=== PATIENT | female | born 1975 | race Caucasian/White ===

== ENCOUNTER 2016-10-09 13:43 | Emergency (ER) | payer OTHER ==
[~2016-10-09 13:43] MED LIST: HYDROCODONE BIT1 T11 PO; MOTRIN600 MG PO; MOTRIN800 MG PO; Motrin,Rufen800 MG PO; NAPROSYN500 MG PO; NAPROXEN500 M1 PO; NO DAILY MEDS; PERCOCET 325 MG1 TA2 PO; VICODIN 5/500 505 MG PO; VICODIN 500 MG-1 TAB PO
[2016-10-09 13:50] VITALS: BP 122/90
[2016-10-09] MEDS ORDERED: DOK COLACE100 MG PO (16:01)
[2016-10-09] MEDS ORDERED: PERCOCET 325 MG1 TA2 PO (16:01)
[2016-10-09] MEDS ORDERED: Motrin,Rufen800 MG PO (16:01)
== END 2016-10-09 16:03 | disposition home or self-care (01) ==
LOC: ED 13:43
DX: S22.31XA Fracture of one rib, right side, initial encounter for closed fracture (principal); F17.200 Nicotine dependence, unspecified, uncomplicated; Z88.0 Allergy status to penicillin; Z88.8 Allergy status to other drugs, medicaments and biological substances; W19.XXXA Unspecified fall, initial encounter; Y93.89 Activity, other specified; Y92.9 Unspecified place or not applicable; Y99.9 Unspecified external cause status

== ENCOUNTER 2017-06-23 12:55 | Emergency (ER) | payer OTHER ==
[~2017-06-23] VITALS: Ht 160 cm; Wt 53.1 kg
[~2017-06-23 12:55] MED LIST changes: +DOK COLACE100 MG PO
[2017-06-23 13:05] VITALS: BP 130/71
[2017-06-23] MEDS ORDERED: NAPROSYN500 MG PO (14:09)
[2017-06-23] MEDS ORDERED: NORCO 5-325 TA1 EACH PO (14:59)
== END 2017-06-23 15:10 | disposition home or self-care (01) ==
LOC: ED 12:55
DX: S89.92XA Unspecified injury of left lower leg, initial encounter (principal); M25.462 Effusion, left knee; R03.0 Elevated blood-pressure reading, without diagnosis of hypertension; Z88.0 Allergy status to penicillin; Z88.8 Allergy status to other drugs, medicaments and biological substances; W22.8XXA Striking against or struck by other objects, initial encounter; Y93.89 Activity, other specified; Y92.89 Other specified places as the place of occurrence of the external cause; Y99.8 Other external cause status

== ENCOUNTER 2018-10-09 16:06 | Emergency (ER) | payer OTHER ==
[~2018-10-09] VITALS: Ht 152.4 cm; Wt 57.6 kg
[~2018-10-09 16:06] MED LIST changes: +NORCO 5-325 TA1 EACH PO
[2018-10-09 16:08] VITALS: BP 114/84
[2018-10-09] MEDS ORDERED: CLINDAMYCIN HC300 MG PO (16:43)
== END 2018-10-09 17:27 | disposition home or self-care (01) ==
LOC: ED 16:06
DX: S81.812A Laceration without foreign body, left lower leg, initial encounter (principal); Z88.0 Allergy status to penicillin; Z88.8 Allergy status to other drugs, medicaments and biological substances; W22.8XXA Striking against or struck by other objects, initial encounter; Y93.89 Activity, other specified; Y92.89 Other specified places as the place of occurrence of the external cause; Y99.8 Other external cause status

== ENCOUNTER 2019-11-29 16:20 | Emergency (ER) | payer OTHER ==
[~2019-11-29] VITALS: Ht 160 cm; Wt 63.5 kg
[~2019-11-29 16:20] MED LIST changes: +CLINDAMYCIN HC300 MG PO
[2019-11-29 16:32] VITALS: BP 139/78
[2019-11-29] MEDS ORDERED: Motrin,Rufen800 MG PO (19:23)
[2019-11-29] MEDS ORDERED: CYCLOBENZAPRINE5 M3 PO (19:23)
== END 2019-11-29 19:26 | disposition home or self-care (01) ==
LOC: ED 16:20
DX: S27.329A Contusion of lung, unspecified, initial encounter (principal); F17.200 Nicotine dependence, unspecified, uncomplicated; Z88.0 Allergy status to penicillin; Z88.8 Allergy status to other drugs, medicaments and biological substances; Z79.899 Other long term (current) drug therapy; V89.2XXA Person injured in unspecified motor-vehicle accident, traffic, initial encounter; Y93.89 Activity, other specified; Y92.89 Other specified places as the place of occurrence of the external cause; Y99.8 Other external cause status

== ENCOUNTER → 2020-10-01 | Outpatient (CLI) | payer OTHER ==
[~2020-10-01] MED LIST changes: +CYCLOBENZAPRINE5 M3 PO
== END | disposition home or self-care (01) ==
LOC: COVID19 10:51
PROVIDERS: ATTEND Student in an Organized Health Care Education/Training Program
DX: Z20.828 Contact with and (suspected) exposure to other viral communicable diseases (principal)

== ENCOUNTER → 2020-12-11 | Outpatient (CLI) | payer OTHER ==
[2020-12-11 14:50] LABS: HEMATOCRIT 41.3 % (37.0-47.0); MEAN CELL VOLUME 92.8 fl (81.0-99.0); MEAN CORPUSCULAR HGB 30.3 pg (27.0-31.0); MEAN CORPUSCULAR HGB CONC 32.7 g/dl (33.0-37.0); MEAN PLATELET VOLUME 11.4 fl (9.6-12.3); PLATELET COUNT AUTOMATED 143 10*3/uL (130-400); RED BLOOD COUNT 4.45 10*6/uL (4.10-5.10); RED CELL DISTRI WIDTH 12.8 % (0-14.5); RETICULOCYTE % 0.79 % (0.50-2.50); WHITE BLOOD COUNT 2.6 10*3/uL (4.8-10.8)
[2020-12-11 15:11] LABS: ATYPICAL LYMPHS 1 % (0-0); BASOPHILS 2 % (0-1); PLATELET SUFFICIENCY NORMAL (NORMAL); TOTAL CELLS COUNTED 100 #CELLS
[2020-12-11 15:19] LABS: ALBUMIN 3.6 gm/dl (3.1-4.5); ALKALINE PHOSPHATASE 126 U/L (45-117); BUN 11 mg/dl (7-24); CHLORIDE 106 mmol/L (98-107); CHOLESTEROL 185 mg/dL (<200); CREATININE 0.73 mg/dL (0.55-1.02); GAMMA GLUTAMYL TRANSPEPTIDASE 56 U/L (5-55); HDL CHOLESTEROL 119 mg/dl (40-60); IRON 44 ug/dL (50-170); LDL CHOLESTEROL 54 mg/dL (9-159); POTASSIUM 3.5 mmol/L (3.5-5.1); SGOT/AST 22 IU/L (3-35); SGPT/ALT 36 U/L (12-78); SODIUM 138 mmol/L (136-145); TOTAL PROTEIN 7.8 gm/dL (6.4-8.2); TRIGLYCERIDES 61 mg/dl (<150); URIC ACID 5.4 mg/dL (2.6-6.0); VLDL CHOLESTEROL 12 mg/dL (6-40)
[2020-12-11 15:27] LABS: THYROID STIM HORMONE (HS) 0.931 uIU/ml (0.358-4.75); TOTAL IRON BINDING CAPACITY 279 ug/dl (250-450)
[2020-12-11 15:34] LABS: FERRITIN 213.1 ng/mL (10.0-291.0); VITAMIN D, 25-HYDROXY 9.2 ng/mL (30-100)
[2020-12-12 09:05] LABS: RHEUMATOID ARTHRITIS FACTOR 44.8 IU/mL (0.0-13.9)
[2020-12-13 16:05] LABS: ANTI-DSDNA ANTIBODIES 1 IU/mL (0-9)
== END | disposition home or self-care (01) ==
LOC: LAB 14:22
PROVIDERS: ATTEND Family Medicine
DX: R79.89 Other specified abnormal findings of blood chemistry (principal); R53.83 Other fatigue; R74.8 Abnormal levels of other serum enzymes; E55.9 Vitamin D deficiency, unspecified

== ENCOUNTER 2021-03-07 13:19 | Emergency (ER) | payer OTHER ==
[~2021-03-07] VITALS: Wt 59.0 kg
[2021-03-07 13:24] VITALS: BP 158/92
[2021-03-07] MEDS ORDERED: HYDROCODONE-AC1 EAC1 PO (15:46)
== END 2021-03-07 15:54 | disposition home or self-care (01) ==
LOC: ED 13:19
DX: S22.32XA Fracture of one rib, left side, initial encounter for closed fracture (principal); Z88.0 Allergy status to penicillin; Z88.8 Allergy status to other drugs, medicaments and biological substances; Z79.899 Other long term (current) drug therapy; X58.XXXA Exposure to other specified factors, initial encounter; Y93.11 Activity, swimming; Y92.89 Other specified places as the place of occurrence of the external cause; Y99.8 Other external cause status

== ENCOUNTER 2021-07-29 14:37 | Emergency (ER) | payer OTHER ==
[~2021-07-29] VITALS: Wt 60.3 kg
[~2021-07-29 14:37] MED LIST changes: +HYDROCODONE-AC1 EAC1 PO
[2021-07-29 14:58] VITALS: BP 137/98
== END 2021-07-29 16:15 | disposition left against medical advice (07) ==
LOC: ED 14:37
DX: L53.8 Other specified erythematous conditions (principal); Z53.21 Procedure and treatment not carried out due to patient leaving prior to being seen by health care provider

== ENCOUNTER → 2021-07-31 | Outpatient (CLI) | payer OTHER ==
[~2021-07-31] MED LIST changes: +CIPRO500 MG PO; +METRONIDAZOLE500 M1 PO
[2021-07-31 12:39] LABS: HEMATOCRIT 41.7 % (37.0-47.0); MEAN CELL VOLUME 96.5 fl (81.0-99.0); MEAN CORPUSCULAR HGB 32.4 pg (27.0-31.0); MEAN CORPUSCULAR HGB CONC 33.6 g/dl (33.0-37.0); MEAN PLATELET VOLUME 10.4 fl (9.6-12.3); PLATELET COUNT AUTOMATED 182 10*3/uL (130-400); RED BLOOD COUNT 4.32 10*6/uL (4.10-5.10); RED CELL DISTRI WIDTH 13.6 % (0-14.5); WHITE BLOOD COUNT 3.6 10*3/uL (4.8-10.8)
[2021-07-31 12:41] LABS: BILIRUBIN 1+ (Negative); BLOOD Negative (Negative); CLARITY Clear (Clear); COLOR Dark Yellow (Yellow); GLUCOSE Negative (Negative); KETONE Trace (Negative); LEUKO ESTERASE Trace (Negative); NITRITE Negative (Negative); SPECIFIC GRAVITY 1.025 (1.001-1.030)
[2021-07-31 13:07] LABS: ATYPICAL LYMPHS 22 % (0-0); PLATELET SUFFICIENCY NORMAL (NORMAL); TOTAL CELLS COUNTED 100 #CELLS
[2021-07-31 13:09] LABS: ALKALINE PHOSPHATASE 95 U/L (45-117); BUN 8 mg/dl (7-24); CHLORIDE 105 mmol/L (98-107); CHOLESTEROL 221 mg/dL (<200); CREATININE 0.71 mg/dL (0.55-1.02); GAMMA GLUTAMYL TRANSPEPTIDASE 200 U/L (5-55); IRON 81 ug/dL (50-170); LDL CHOLESTEROL 71 mg/dL (9-159); POTASSIUM 3.6 mmol/L (3.5-5.1); SGOT/AST 46 IU/L (3-35); SGPT/ALT 46 U/L (12-78); SODIUM 138 mmol/L (136-145); TOTAL IRON BINDING CAPACITY 285 ug/dl (250-450); TRIGLYCERIDES 54 mg/dl (<150)
[2021-07-31 13:15] LABS: BACTERIA 1+; MUCOUS 2+
== END | disposition home or self-care (01) ==
LOC: LAB 12:04
PROVIDERS: ATTEND Family Medicine
DX: R53.83 Other fatigue (principal); E78.5 Hyperlipidemia, unspecified; R79.89 Other specified abnormal findings of blood chemistry

== ENCOUNTER 2021-08-11 09:47 | Emergency (ER) | payer OTHER ==
[~2021-08-11] VITALS: Ht 160 cm; Wt 59.0 kg
[~2021-08-11 09:47] MED LIST changes: -CIPRO500 MG PO; -METRONIDAZOLE500 M1 PO
[2021-08-11 09:59] VITALS: BP 114/82
[2021-08-11 10:44] LABS: BASO % 0.8 % (0.0-1.0); EOS # 0.1 10*3/uL (0.0-0.4); EOS % 2.3 % (1.0-4.0); LYMPH # 1.5 10*3/uL (1.3-4.4); LYMPH % 29.8 % (27.0-41.0); MEAN CELL VOLUME 97.7 fl (81.0-99.0); MEAN CORPUSCULAR HGB 32.8 pg (27.0-31.0); MEAN CORPUSCULAR HGB CONC 33.6 g/dl (33.0-37.0); MEAN PLATELET VOLUME 10.5 fl (9.6-12.3); MONO # 0.8 10*3/uL (0.1-1.0); MONO % 15.9 % (3.0-9.0); NEUT # 2.6 10*3/uL (2.3-7.9); NEUT % 50.8 % (47.0-73.0); PLATELET COUNT AUTOMATED 176 10*3/uL (130-400); RED BLOOD COUNT 3.99 10*6/uL (4.10-5.10); RED CELL DISTRI WIDTH 13.7 % (0-14.5); WHITE BLOOD COUNT 5.2 10*3/uL (4.8-10.8)
[2021-08-11 10:44] LABS: BILIRUBIN 2+ (Negative); BLOOD Negative (Negative); CLARITY Cloudy (Clear); COLOR Dark Yellow (Yellow); GLUCOSE Negative (Negative); KETONE 1+ (Negative); LEUKO ESTERASE 1+ (Negative); NITRITE Negative (Negative); PH 5.5 (4.5-8.0); SPECIFIC GRAVITY 1.025 (1.001-1.030)
[2021-08-11 10:51] LABS: MUCOUS 2+
[2021-08-11 11:04] LABS: ALBUMIN 3.4 gm/dl (3.1-4.5); ALKALINE PHOSPHATASE 104 U/L (45-117); BUN 8 mg/dl (7-24); CHLORIDE 102 mmol/L (98-107); CREATININE 0.57 mg/dL (0.55-1.02); LIPASE 92 U/L (73-393); POTASSIUM 3.2 mmol/L (3.5-5.1); SGOT/AST 36 IU/L (3-35); SGPT/ALT 40 U/L (12-78); SODIUM 140 mmol/L (136-145); TOTAL PROTEIN 7.6 gm/dL (6.4-8.2)
[2021-08-11 11:12] LABS: TROPONIN I < 0.015 ng/ml (<0.045)
[2021-08-11] MEDS ORDERED: CIPRO500 MG PO (12:13)
[2021-08-11] MEDS ORDERED: METRONIDAZOLE500 M1 PO (12:13)
== END 2021-08-11 12:47 | disposition home or self-care (01) ==
LOC: ED 09:47
PROVIDERS: Emergency Medicine
DX: K57.32 Diverticulitis of large intestine without perforation or abscess without bleeding (principal); F17.200 Nicotine dependence, unspecified, uncomplicated; Z88.0 Allergy status to penicillin

== ENCOUNTER → 2021-08-11 | Outpatient (CLI) | payer OTHER | END | disposition home or self-care (01) | LOC: US 08:45 | PROVIDERS: ATTEND Family Medicine | DX: K76.0 Fatty (change of) liver, not elsewhere classified (principal); K76.89 Other specified diseases of liver ==

== ENCOUNTER 2022-05-04 17:35 | Emergency (ER) | payer OTHER ==
[~2022-05-04] VITALS: Ht 160 cm; Wt 59.0 kg
[~2022-05-04 17:35] MED LIST changes: +CIPRO500 MG PO; +METRONIDAZOLE500 M1 PO
[2022-05-04 17:52] VITALS: BP 132/84
[2022-05-04] MEDS ORDERED: HYDROCODONE-AC1 EAC1 PO (20:29)
== END 2022-05-04 20:28 | disposition home or self-care (01) ==
LOC: ED 17:35
DX: S90.32XA Contusion of left foot, initial encounter (principal); Z88.0 Allergy status to penicillin; Z98.890 Other specified postprocedural states; F17.200 Nicotine dependence, unspecified, uncomplicated; W18.39XA Other fall on same level, initial encounter; Y93.89 Activity, other specified; Y92.89 Other specified places as the place of occurrence of the external cause; Y99.8 Other external cause status

== ENCOUNTER → 2022-07-01 | Outpatient (CLI) | payer OTHER | END | disposition home or self-care (01) | LOC: RAD 12:55 | PROVIDERS: ATTEND Family Medicine | DX: M19.042 Primary osteoarthritis, left hand (principal); M19.041 Primary osteoarthritis, right hand; M85.841 Other specified disorders of bone density and structure, right hand; M85.842 Other specified disorders of bone density and structure, left hand; M25.741 Osteophyte, right hand; M25.742 Osteophyte, left hand ==

== ENCOUNTER → 2022-07-05 | Outpatient (CLI) | payer OTHER ==
[2022-07-05 14:11] LABS: BASO # 0.1 10*3/uL (0.0-0.1); BASO % 1.7 % (0.0-1.0); EOS # 0.1 10*3/uL (0.0-0.4); EOS % 3.4 % (1.0-4.0); HEMATOCRIT 39.9 % (37.0-47.0); LYMPH # 1.2 10*3/uL (1.3-4.4); LYMPH % 40.2 % (27.0-41.0); MEAN CELL VOLUME 90.3 fl (81.0-99.0); MEAN CORPUSCULAR HGB 29.9 pg (27.0-31.0); MEAN CORPUSCULAR HGB CONC 33.1 g/dl (33.0-37.0); MEAN PLATELET VOLUME 10.2 fl (9.6-12.3); MONO # 0.5 10*3/uL (0.1-1.0); MONO % 16.6 % (3.0-9.0); NEUT # 1.1 10*3/uL (2.3-7.9); NEUT % 38.1 % (47.0-73.0); PLATELET COUNT AUTOMATED 171 10*3/uL (130-400); RED BLOOD COUNT 4.42 10*6/uL (4.10-5.10); RED CELL DISTRI WIDTH 13.9 % (0-14.5); RETICULOCYTE % 0.83 % (0.50-2.50)
[2022-07-05 14:18] LABS: BILIRUBIN Negative (Negative); BLOOD Negative (Negative); CLARITY Clear (Clear); COLOR Yellow (Yellow); GLUCOSE Negative (Negative); KETONE Negative (Negative); LEUKO ESTERASE Negative (Negative); NITRITE Negative (Negative); PH 6.5 (4.5-8.0); UROBILINOGEN 0.2 E.U./dl (0.0-1.0)
[2022-07-05 14:29] LABS: ALKALINE PHOSPHATASE 111 U/L (45-117); BUN 17 mg/dl (7-24); CHLORIDE 107 mmol/L (98-107); CHOLESTEROL 230 mg/dL (<200); IRON 76 ug/dL (50-170); LDL CHOLESTEROL 85 mg/dL (9-159); SGOT/AST 25 IU/L (3-35); SGPT/ALT 36 U/L (12-78); SODIUM 136 mmol/L (136-145); T3 UPTAKE 35 % (31-39); TOTAL PROTEIN 7.9 gm/dL (6.4-8.2); TRIGLYCERIDES 79 mg/dl (<150); URIC ACID 4.5 mg/dL (2.6-6.0)
[2022-07-05 14:36] LABS: GAMMA GLUTAMYL TRANSPEPTIDASE 48 U/L (5-55)
[2022-07-05 14:39] LABS: BACTERIA TRACE
[2022-07-05 15:40] LABS: FERRITIN 169.2 ng/mL (10.0-291.0); VITAMIN D, 25-HYDROXY 9.5 ng/mL (30-100)
[2022-07-06 07:06] LABS: RHEUMATOID FACTOR 19.5 IU/mL (<14.0)
[2022-07-06 14:07] LABS: ANTI-DSDNA ANTIBODIES 1 IU/mL (0-9)
== END | disposition home or self-care (01) ==
LOC: LAB 13:44
PROVIDERS: ATTEND Family Medicine
DX: E78.5 Hyperlipidemia, unspecified (principal); E55.9 Vitamin D deficiency, unspecified; R79.89 Other specified abnormal findings of blood chemistry; R53.83 Other fatigue; R74.8 Abnormal levels of other serum enzymes

== ENCOUNTER 2023-02-07 09:55 | Emergency (ER) | payer OTHER ==
[~2023-02-07] VITALS: Wt 64.4 kg
[2023-02-07 10:05] VITALS: BP 114/87
[2023-02-07 10:40] LABS: HEMATOCRIT 38.8 % (37.0-47.0); MANUAL DIFF REFLEX YES; MEAN CELL VOLUME 90.9 fl (81.0-99.0); MEAN PLATELET VOLUME 10.2 fl (9.6-12.3); PLATELET COUNT AUTOMATED 160 10*3/uL (130-400); RED BLOOD COUNT 4.27 10*6/uL (4.10-5.10); WHITE BLOOD COUNT 3.4 10*3/uL (4.8-10.8)
[2023-02-07 10:52] LABS: ACT PARTIAL THROMBO TIME 32.6 SECONDS (20.0-32.1); INTERNATIONAL NORM RATIO 0.9 (2.0-3.5)
[2023-02-07 11:09] LABS: ATYPICAL LYMPHS 1 % (0-0); BASOPHILS 3 % (0-1); BURR CELLS FEW; OVALOCYTES FEW; PLATELET SUFFICIENCY NORMAL (NORMAL); POLYCHROMASIA SLIGHT; TOTAL CELLS COUNTED 100 #CELLS
[2023-02-07 11:21] LABS: ALKALINE PHOSPHATASE 113 U/L (46-116); BUN 12 mg/dl (9-23); CHLORIDE 108 mmol/L (98-107); LIPASE 50 U/L (12-53); POTASSIUM 3.9 mmol/L (3.4-5.1); SGPT/ALT 23 U/L (10-49); TOTAL PROTEIN 7.4 gm/dL (6.0-8.0)
[2023-02-07] MEDS ORDERED: HYDROCODONE-AC1 EAC1 PO (11:36)
[2023-02-07] MEDS ORDERED: CIPRO500 MG PO (11:36)
[2023-02-07] MEDS ORDERED: METRONIDAZOLE500 M1 PO (11:36)
[2023-02-07] MEDS ORDERED: PHENERGAN25 M3 PO (11:36)
== END 2023-02-07 12:00 | disposition home or self-care (01) ==
LOC: ED 09:55
PROVIDERS: Emergency Medicine
DX: K57.32 Diverticulitis of large intestine without perforation or abscess without bleeding (principal); Z88.0 Allergy status to penicillin; Z98.890 Other specified postprocedural states; Z87.891 Personal history of nicotine dependence

== ENCOUNTER 2023-02-21 16:41 | Emergency (ER) | payer OTHER ==
[~2023-02-21] VITALS: Wt 61.2 kg
[~2023-02-21 16:41] MED LIST changes: +PHENERGAN25 M3 PO
[2023-02-21 16:52] VITALS: BP 126/90
[2023-02-21 19:42] LABS: HEMATOCRIT 38.9 % (37.0-47.0); MEAN CELL VOLUME 90.5 fl (81.0-99.0); MEAN CORPUSCULAR HGB CONC 33.2 g/dl (33.0-37.0); MEAN PLATELET VOLUME 10.3 fl (9.6-12.3); PLATELET COUNT AUTOMATED 195 10*3/uL (130-400); RED CELL DISTRI WIDTH 14.6 % (0-14.5); WHITE BLOOD COUNT 3.8 10*3/uL (4.8-10.8)
[2023-02-21 19:45] LABS: MANUAL DIFF REFLEX YES
[2023-02-21 20:03] LABS: ALKALINE PHOSPHATASE 96 U/L (46-116); BUN 8 mg/dl (9-23); CHLORIDE 106 mmol/L (98-107); POTASSIUM 3.8 mmol/L (3.4-5.1); SGPT/ALT 17 U/L (10-49)
[2023-02-21] MEDS ORDERED: METRONIDAZOLE500 M1 PO ×2 (20:12)
[2023-02-21] MEDS ORDERED: CIPRO500 MG PO ×2 (20:12)
[2023-02-21 20:14] LABS: ATYPICAL LYMPHS 2 % (0-0); OVALOCYTES FEW; PLATELET SUFFICIENCY NORMAL (NORMAL); TOTAL CELLS COUNTED 100 #CELLS
[2023-02-21 20:15] LABS: BURR CELLS FEW; POLYCHROMASIA SLIGHT
== END 2023-02-21 20:34 | disposition left against medical advice (07) ==
LOC: ED 16:41
PROVIDERS: Internal Medicine
DX: K57.32 Diverticulitis of large intestine without perforation or abscess without bleeding (principal); D72.819 Decreased white blood cell count, unspecified; Z88.0 Allergy status to penicillin; Z98.890 Other specified postprocedural states

== ENCOUNTER 2023-02-22 12:37 | Inpatient (IN) | payer OTHER ==
[~2023-02-22] VITALS: Ht 160 cm; Wt 61.2 kg
[2023-02-22 12:59] VITALS: BP 103/80
[2023-02-22 15:14] LABS: HEMATOCRIT 40.6 % (37.0-47.0); MEAN CELL VOLUME 91.6 fl (81.0-99.0); MEAN CORPUSCULAR HGB 30.5 pg (27.0-31.0); MEAN CORPUSCULAR HGB CONC 33.3 g/dl (33.0-37.0); MEAN PLATELET VOLUME 10.7 fl (9.6-12.3); PLATELET COUNT AUTOMATED 207 10*3/uL (130-400); RED BLOOD COUNT 4.43 10*6/uL (4.10-5.10); RED CELL DISTRI WIDTH 14.3 % (0-14.5); WHITE BLOOD COUNT 2.7 10*3/uL (4.8-10.8)
[2023-02-22 15:17] LABS: MANUAL DIFF REFLEX YES
[2023-02-22 15:41] LABS: ALKALINE PHOSPHATASE 98 U/L (46-116); BUN 7 mg/dl (9-23); CHLORIDE 107 mmol/L (98-107); LIPASE 36 U/L (12-53); POTASSIUM 3.7 mmol/L (3.4-5.1); SGPT/ALT 12 U/L (10-49); TOTAL PROTEIN 7.2 gm/dL (6.0-8.0)
[2023-02-22 15:50] LABS: ATYPICAL LYMPHS 3 % (0-0); BASOPHILS 2 % (0-1); TOTAL CELLS COUNTED 100 #CELLS
[2023-02-22 15:52] LABS: PLATELET SUFFICIENCY NORMAL (NORMAL)
[2023-02-22 20:43] VITALS: BP 108/75
[2023-02-23 00:09] VITALS: BP 106/56
[2023-02-23 05:57] VITALS: BP 108/76
[2023-02-23 07:53] LABS: MEAN CELL VOLUME 92.3 fl (81.0-99.0); MEAN CORPUSCULAR HGB 30.2 pg (27.0-31.0); MEAN CORPUSCULAR HGB CONC 32.7 g/dl (33.0-37.0); PLATELET COUNT AUTOMATED 191 10*3/uL (130-400); RED BLOOD COUNT 4.01 10*6/uL (4.10-5.10); RED CELL DISTRI WIDTH 14.3 % (0-14.5); WHITE BLOOD COUNT 3.2 10*3/uL (4.8-10.8)
[2023-02-23 07:54] LABS: MANUAL DIFF REFLEX YES
[2023-02-23 07:59] VITALS: BP 134/94
[2023-02-23 08:16] LABS: ALKALINE PHOSPHATASE 78 U/L (46-116); BUN 6 mg/dl (9-23); CHLORIDE 108 mmol/L (98-107); CHOLESTEROL 106 mg/dL (<200); FREE T4 0.99 ng/dl (0.89-1.76); LDL CHOLESTEROL 40 mg/dL (9-159); POTASSIUM 3.7 mmol/L (3.4-5.1); SGPT/ALT 14 U/L (10-49); TOTAL PROTEIN 6.3 gm/dL (6.0-8.0); TRIGLYCERIDES 54 mg/dl (<150)
[2023-02-23 08:24] LABS: ATYPICAL LYMPHS 2 % (0-0); BASOPHILS 3 % (0-1); POLYCHROMASIA SLIGHT; TOTAL CELLS COUNTED 100 #CELLS
[2023-02-23 08:25] LABS: BURR CELLS FEW; PLATELET SUFFICIENCY NORMAL (NORMAL)
[2023-02-23 08:56] LABS: VITAMIN D, 25-HYDROXY 23.8 ng/mL (30-100)
[2023-02-23] MEDS ORDERED: CIPRO500 MG PO (10:25)
[2023-02-23] MEDS ORDERED: METRONIDAZOLE500 M1 PO (10:25)
[2023-02-23] MEDS ORDERED: TRAMADOL HCL50 MG PO (10:41)
== END 2023-02-23 10:41 | disposition home or self-care (01) | DRG 244 ==
LOC: ED 12:37 → EDHOLD 17:37
PROVIDERS: Emergency Medicine; Internal Medicine; ADMIT Student in an Organized Health Care Education/Training Program; ATTEND Student in an Organized Health Care Education/Training Program
DX: K57.32 Diverticulitis of large intestine without perforation or abscess without bleeding (principal); D72.819 Decreased white blood cell count, unspecified; R73.9 Hyperglycemia, unspecified; M79.7 Fibromyalgia; F17.210 Nicotine dependence, cigarettes, uncomplicated; Z88.0 Allergy status to penicillin; Z83.3 Family history of diabetes mellitus; Z81.8 Family history of other mental and behavioral disorders; Z71.6 Tobacco abuse counseling

== ENCOUNTER 2023-06-27 19:34 | Emergency (ER) | payer OTHER ==
[~2023-06-27] VITALS: Ht 160 cm; Wt 59.9 kg
[~2023-06-27 19:34] MED LIST changes: +TRAMADOL HCL50 MG PO
[2023-06-27 19:47] VITALS: BP 111/86
[2023-06-27 20:50] LABS: BASO # 0.1 10*3/uL (0.0-0.1); BASO % 1.2 % (0.0-1.0); EOS % 0.2 % (1.0-4.0); HEMATOCRIT 36.7 % (37.0-47.0); LYMPH # 1.9 10*3/uL (1.3-4.4); LYMPH % 46.3 % (27.0-41.0); MEAN CELL VOLUME 88.9 fl (81.0-99.0); MEAN CORPUSCULAR HGB 30.3 pg (27.0-31.0); MEAN CORPUSCULAR HGB CONC 34.1 g/dl (33.0-37.0); MEAN PLATELET VOLUME 10.1 fl (9.6-12.3); MONO # 0.7 10*3/uL (0.1-1.0); MONO % 17.7 % (3.0-9.0); NEUT # 1.4 10*3/uL (2.3-7.9); NEUT % 34.4 % (47.0-73.0); PLATELET COUNT AUTOMATED 214 10*3/uL (130-400); RED BLOOD COUNT 4.13 10*6/uL (4.10-5.10); RED CELL DISTRI WIDTH 13.8 % (0-14.5); WHITE BLOOD COUNT 4.2 10*3/uL (4.8-10.8)
[2023-06-27 21:14] LABS: ALKALINE PHOSPHATASE 109 U/L (46-116); BUN 9 mg/dl (9-23); CHLORIDE 108 mmol/L (98-107); LIPASE 33 U/L (12-53); POTASSIUM 3.7 mmol/L (3.4-5.1); SGPT/ALT 13 U/L (10-49); TOTAL PROTEIN 7.7 gm/dL (6.0-8.0)
[2023-06-27] MEDS ORDERED: CIPRO500 MG PO (22:20)
[2023-06-27] MEDS ORDERED: METRONIDAZOLE500 M1 PO (22:20)
== END 2023-06-27 22:45 | disposition home or self-care (01) ==
LOC: ED 19:34
PROVIDERS: Internal Medicine
DX: K57.32 Diverticulitis of large intestine without perforation or abscess without bleeding (principal); M79.7 Fibromyalgia; Z88.0 Allergy status to penicillin; Z98.890 Other specified postprocedural states; F17.200 Nicotine dependence, unspecified, uncomplicated

== ENCOUNTER → 2023-06-29 | Outpatient (CLI) | payer OTHER | END | disposition home or self-care (01) | LOC: CT 01:21 | PROVIDERS: ATTEND Family Medicine | DX: R91.8 Other nonspecific abnormal finding of lung field (principal); M43.8X4 Other specified deforming dorsopathies, thoracic region ==

== ENCOUNTER 2023-12-29 12:44 | Inpatient (IN) | payer OTHER ==
[~2023-12-29] VITALS: Ht 160 cm; Wt 56.7 kg
[2023-12-29 13:13] VITALS: BP 100/60
[2023-12-29] MEDS ORDERED: Ondansetron Hydrochloride 4 MG/2 ML VIAL IV ONE (13:35)
[2023-12-29] MEDS ORDERED: SODIUM CHLORIDE 0.9% 1,000 ML IV ONE (13:35)
[2023-12-29] MEDS ORDERED: HYDROmorphONE Hydrochloride 1 MG/ML SYR IV ONE (13:35)
[2023-12-29 14:04] LABS: BASO % 0.7 % (0.0-1.0); EOS % 0.5 % (1.0-4.0); HEMATOCRIT 37.8 % (37.0-47.0); LYMPH # 1.2 10*3/uL (1.3-4.4); LYMPH % 27.4 % (27.0-41.0); MEAN CELL VOLUME 88.9 fl (81.0-99.0); MEAN CORPUSCULAR HGB 28.2 pg (27.0-31.0); MEAN CORPUSCULAR HGB CONC 31.7 g/dl (33.0-37.0); MEAN PLATELET VOLUME 9.8 fl (9.6-12.3); MONO # 0.6 10*3/uL (0.1-1.0); MONO % 13.3 % (3.0-9.0); NEUT # 2.5 10*3/uL (2.3-7.9); NEUT % 57.6 % (47.0-73.0); PLATELET COUNT AUTOMATED 203 10*3/uL (130-400); RED BLOOD COUNT 4.25 10*6/uL (4.10-5.10); WHITE BLOOD COUNT 4.3 10*3/uL (4.8-10.8)
[2023-12-29 14:14] LABS: ACT PARTIAL THROMBO TIME 34.3 SECONDS (20.0-32.1)
[2023-12-29 14:24] LABS: ALKALINE PHOSPHATASE 118 U/L (46-116); BUN 8 mg/dl (9-23); CHLORIDE 106 mmol/L (98-107); LIPASE 33 U/L (12-53); POTASSIUM 3.8 mmol/L (3.4-5.1); SGPT/ALT < 7 U/L (5-49); TOTAL PROTEIN 7.2 gm/dL (6.0-8.0)
[2023-12-29 15:15] LABS: BILIRUBIN Negative (Negative); BLOOD Negative (Negative); CLARITY Clear (Clear); COLOR Yellow (Yellow); GLUCOSE Negative (Negative); KETONE 1+ (Negative); LEUKO ESTERASE Negative (Negative); NITRITE Negative (Negative); UROBILINOGEN 0.2 E.U./dl (0.0-1.0)
[2023-12-29 15:27] LABS: RBC 0-2 rbc/hpf (0-2)
[2023-12-29] MEDS ORDERED: Vancomycin Hydrochloride 250 ML IV ONE (15:30)
[2023-12-29] MEDS ORDERED: Cefepime Hydrochloride 2 GM in SODIUM CHLORIDE 0.9% 50 ML IV ONE (15:35)
[2023-12-29] MEDS ORDERED: Ondansetron Hydrochloride 4 MG/2 ML VIAL IV PRN (16:50)
[2023-12-29 16:55] VITALS: BP 100/71
[2023-12-29] MEDS ORDERED: HYDROmorphONE Hydrochloride 1 MG/ML SYR IV PRN (17:10)
[2023-12-29 18:00] VITALS: BP 114/77
[2023-12-29] MEDS ORDERED: LINZESS290 MC1 PO (19:27)
[2023-12-29 20:00] VITALS: BP 117/77
[2023-12-29] MEDS ORDERED: Meropenem 1 GM in SODIUM CHLORIDE 0.9% 100 ML IV SCH (22:00)
[2023-12-30] VITALS: BP 107/68
[2023-12-30 06:43] LABS: BASO % 0.6 % (0.0-1.0); EOS % 0.2 % (1.0-4.0); HEMATOCRIT 32.5 % (37.0-47.0); LYMPH # 1.9 10*3/uL (1.3-4.4); LYMPH % 37.1 % (27.0-41.0); MEAN CELL VOLUME 89.3 fl (81.0-99.0); MEAN CORPUSCULAR HGB 28.3 pg (27.0-31.0); MEAN CORPUSCULAR HGB CONC 31.7 g/dl (33.0-37.0); MEAN PLATELET VOLUME 10.4 fl (9.6-12.3); MONO # 0.8 10*3/uL (0.1-1.0); MONO % 15.7 % (3.0-9.0); NEUT # 2.3 10*3/uL (2.3-7.9); PLATELET COUNT AUTOMATED 176 10*3/uL (130-400); RED BLOOD COUNT 3.64 10*6/uL (4.10-5.10); RED CELL DISTRI WIDTH 15.2 % (0-14.5); WHITE BLOOD COUNT 5.1 10*3/uL (4.8-10.8)
[2023-12-30 07:10] LABS: ALKALINE PHOSPHATASE 99 U/L (46-116); CHLORIDE 104 mmol/L (98-107); POTASSIUM 3.3 mmol/L (3.4-5.1); TOTAL PROTEIN 6.4 gm/dL (6.0-8.0)
[2023-12-30 07:23] LABS: BUN < 5 mg/dl (9-23); SGPT/ALT < 7 U/L (5-49)
[2023-12-30] MEDS ORDERED: FAMOTIDINE 20 MG TAB PO SCH (07:30)
[2023-12-30 08:00] VITALS: BP 92/60
[2023-12-30] MEDS ORDERED: Enoxaparin Sodium 40 MG/0.4 ML SYR SC SCH (10:00)
[2023-12-30 12:00] VITALS: BP 100/68
[2023-12-30 16:00] VITALS: BP 94/60
[2023-12-30 20:00] VITALS: BP 118/82
[2023-12-30] MEDS ORDERED: POTASSIUM CHLORIDE IN WATER 100 ML IV SCH (23:00)
[2023-12-31] VITALS (8 sets, daily range): BP systolic 86–127; BP diastolic 48–90
[2023-12-31 06:04] LABS: HEMATOCRIT 32.6 % (37.0-47.0); MEAN CELL VOLUME 88.8 fl (81.0-99.0); MEAN CORPUSCULAR HGB 28.3 pg (27.0-31.0); MEAN CORPUSCULAR HGB CONC 31.9 g/dl (33.0-37.0); PLATELET COUNT AUTOMATED 162 10*3/uL (130-400); RED BLOOD COUNT 3.67 10*6/uL (4.10-5.10); RED CELL DISTRI WIDTH 14.8 % (0-14.5); WHITE BLOOD COUNT 3.5 10*3/uL (4.8-10.8)
[2023-12-31 06:12] LABS: MANUAL DIFF REFLEX YES
[2023-12-31 06:26] LABS: CHLORIDE 105 mmol/L (98-107); POTASSIUM 3.5 mmol/L (3.4-5.1)
[2023-12-31 06:38] LABS: BUN < 5 mg/dl (9-23)
[2023-12-31 06:56] LABS: PLATELET SUFFICIENCY NORMAL (NORMAL); TOTAL CELLS COUNTED 100 #CELLS
[2023-12-31 06:57] LABS: ROULEAUX SLIGHT
[2023-12-31] MEDS ORDERED: HYDROmorphONE Hydrochloride 0.5 MG/0.5 ML SYRINGE IV PRN ×2 (10:39→20:25)
[2023-12-31] MEDS ORDERED: SODIUM CHLORIDE 0.9% 1,000 ML IV ONE (10:40)
[2023-12-31] MEDS ORDERED: HYDROmorphONE Hydrochloride 0.5 MG/0.5 ML SYRINGE IV ONE (13:55)
[2023-12-31] MEDS ORDERED: NA FERRIC GLUC CMPL/SUCROSE 62.5 MG/5 ML VIAL IV SCH (19:10)
[2024-01-01] VITALS: BP 113/79
[2024-01-01 05:57] LABS: CHLORIDE 104 mmol/L (98-107); POTASSIUM 3.6 mmol/L (3.4-5.1)
[2024-01-01 06:06] LABS: HEMATOCRIT 33.8 % (37.0-47.0); MEAN CELL VOLUME 87.6 fl (81.0-99.0); MEAN CORPUSCULAR HGB 28.2 pg (27.0-31.0); MEAN CORPUSCULAR HGB CONC 32.2 g/dl (33.0-37.0); MEAN PLATELET VOLUME 11.1 fl (9.6-12.3); PLATELET COUNT AUTOMATED 186 10*3/uL (130-400); RED BLOOD COUNT 3.86 10*6/uL (4.10-5.10); RED CELL DISTRI WIDTH 14.8 % (0-14.5); WHITE BLOOD COUNT 3.5 10*3/uL (4.8-10.8)
[2024-01-01 06:11] LABS: BUN < 5 mg/dl (9-23)
[2024-01-01 06:22] LABS: MANUAL DIFF REFLEX YES
[2024-01-01 07:02] LABS: BASOPHILS 1 % (0-1); TOTAL CELLS COUNTED 100 #CELLS
[2024-01-01 07:03] LABS: PLATELET SUFFICIENCY NORMAL (NORMAL)
[2024-01-01 08:00] VITALS: BP 106/62
[2024-01-01] MEDS ORDERED: NA FERRIC GLUC CMPL/SUCROSE 62.5 MG/5 ML VIAL IV SCH (10:00)
[2024-01-01 12:00] VITALS: BP 93/59
[2024-01-01] MEDS ORDERED: Acetaminophen/Hydrocodone 5 MG/325 MG TABLET PO PRN (13:05)
[2024-01-01 16:00] VITALS: BP 99/74
[2024-01-01] MEDS ORDERED: Ketorolac Tromethamine 30 MG/ML VIAL IM ONE (17:40)
[2024-01-01] MEDS ORDERED: Ketorolac Tromethamine 30 MG/ML VIAL IV ONE (17:40)
[2024-01-01] MEDS ORDERED: Ketorolac Tromethamine 15 MG/ML VIAL IV PRN (17:40)
[2024-01-01 20:00] VITALS: BP 138/66
[2024-01-02] VITALS: BP 119/75
[2024-01-02] MEDS ORDERED: IOHEXOL 300 MG/ML 100 ML VIAL IV ONE (06:05)
[2024-01-02] MEDS ORDERED: BARIUM SULFATE 2% 450 ML BOT PO SCH (07:00)
[2024-01-02 08:00] VITALS: BP 124/85
[2024-01-02 12:00] VITALS: BP 123/67
[2024-01-02 16:00] VITALS: BP 113/81
[2024-01-02 20:00] VITALS: BP 107/65
[2024-01-03] VITALS: BP 131/80
[2024-01-03 06:55] LABS: HEMATOCRIT 33.3 % (37.0-47.0); MEAN CELL VOLUME 85.8 fl (81.0-99.0); MEAN CORPUSCULAR HGB 28.6 pg (27.0-31.0); MEAN CORPUSCULAR HGB CONC 33.3 g/dl (33.0-37.0); MEAN PLATELET VOLUME 10.2 fl (9.6-12.3); PLATELET COUNT AUTOMATED 179 10*3/uL (130-400); RED BLOOD COUNT 3.88 10*6/uL (4.10-5.10); RED CELL DISTRI WIDTH 14.6 % (0-14.5); WHITE BLOOD COUNT 3.5 10*3/uL (4.8-10.8)
[2024-01-03 06:56] LABS: MANUAL DIFF REFLEX YES
[2024-01-03 07:31] LABS: ATYPICAL LYMPHS 1 % (0-0); BASOPHILS 1 % (0-1); OVALOCYTES FEW; PLATELET SUFFICIENCY NORMAL (NORMAL); POLYCHROMASIA SLIGHT; TOTAL CELLS COUNTED 100 #CELLS
[2024-01-03 08:00] VITALS: BP 92/52
[2024-01-03] MEDS ORDERED: HYDROmorphONE Hydrochloride 0.5 MG/0.5 ML SYRINGE IV PRN (09:50)
[2024-01-03 12:00] VITALS: BP 92/73
[2024-01-03 14:38] VITALS: BP 98/60
[2024-01-03 16:00] VITALS: BP 95/54
[2024-01-03 20:00] VITALS: BP 88/57
[2024-01-03] MEDS ORDERED: TEMAZEPAM 15 MG CAP PO ONE (23:35)
[2024-01-04] VITALS: BP 82/58
[2024-01-04] MEDS ORDERED: SODIUM CHLORIDE 0.9% 500 ML IV ONE (00:15)
[2024-01-04 01:34] VITALS: BP 103/64
[2024-01-04 06:17] LABS: HEMATOCRIT 32.2 % (37.0-47.0); MEAN CELL VOLUME 86.8 fl (81.0-99.0); MEAN CORPUSCULAR HGB 28.3 pg (27.0-31.0); MEAN CORPUSCULAR HGB CONC 32.6 g/dl (33.0-37.0); MEAN PLATELET VOLUME 10.5 fl (9.6-12.3); PLATELET COUNT AUTOMATED 178 10*3/uL (130-400); RED BLOOD COUNT 3.71 10*6/uL (4.10-5.10); RED CELL DISTRI WIDTH 14.6 % (0-14.5); WHITE BLOOD COUNT 3.6 10*3/uL (4.8-10.8)
[2024-01-04 06:19] LABS: MANUAL DIFF REFLEX YES
[2024-01-04 06:40] LABS: CHLORIDE 104 mmol/L (98-107); POTASSIUM 3.4 mmol/L (3.4-5.1)
[2024-01-04 06:41] LABS: BUN < 5 mg/dl (9-23)
[2024-01-04 06:48] LABS: BASOPHILS 1 % (0-1); OVALOCYTES FEW; PLATELET SUFFICIENCY NORMAL (NORMAL); POLYCHROMASIA SLIGHT; TOTAL CELLS COUNTED 100 #CELLS
[2024-01-04 06:49] LABS: ROULEAUX SLIGHT
[2024-01-04 08:00] VITALS: BP 102/69
[2024-01-04 12:00] VITALS: BP 110/50
[2024-01-04 16:00] VITALS: BP 90/62
[2024-01-04 20:00] VITALS: BP 94/54
[2024-01-04] MEDS ORDERED: TEMAZEPAM 15 MG CAP PO PRN (22:00)
[2024-01-05] VITALS: BP 100/64
[2024-01-05 06:46] LABS: HEMATOCRIT 33.5 % (37.0-47.0); MEAN CELL VOLUME 87.9 fl (81.0-99.0); MEAN CORPUSCULAR HGB 28.3 pg (27.0-31.0); MEAN CORPUSCULAR HGB CONC 32.2 g/dl (33.0-37.0); MEAN PLATELET VOLUME 10.4 fl (9.6-12.3); PLATELET COUNT AUTOMATED 202 10*3/uL (130-400); RED BLOOD COUNT 3.81 10*6/uL (4.10-5.10); RED CELL DISTRI WIDTH 14.7 % (0-14.5)
[2024-01-05 06:51] LABS: MANUAL DIFF REFLEX YES
[2024-01-05 06:54] LABS: CHLORIDE 103 mmol/L (98-107); POTASSIUM 3.4 mmol/L (3.4-5.1)
[2024-01-05 07:01] LABS: BUN < 5 mg/dl (9-23)
[2024-01-05 07:55] LABS: BASOPHILS 1 % (0-1); TOTAL CELLS COUNTED 100 #CELLS
[2024-01-05 07:56] LABS: PLATELET SUFFICIENCY NORMAL (NORMAL)
[2024-01-05 08:00] VITALS: BP 92/62
[2024-01-05 12:00] VITALS: BP 97/65
[2024-01-05] MEDS ORDERED: Acetaminophen/Hydrocodone ES 7.5/325 tablet PO PRN (15:15)
[2024-01-05 16:00] VITALS: BP 90/50
[2024-01-05 20:00] VITALS: BP 96/56
[2024-01-05 22:00] VITALS: BP 95/70
[2024-01-06] VITALS: BP 97/65
[2024-01-06] MEDS ORDERED: Acetaminophen/Hydrocodone ES 7.5/325 tablet PO PRN (07:22)
[2024-01-06 08:00] VITALS: BP 101/64
[2024-01-06] MEDS ORDERED: HYDROCODONE-AC1 EAC2 PO (09:32)
[2024-01-06] MEDS ORDERED: CIPRO500 MG PO (09:32)
[2024-01-06] MEDS ORDERED: METRONIDAZOLE500 M1 PO (09:32)
[2024-01-06] MEDS ORDERED: Ondansetron4 MG PO (09:32)
[2024-01-06] MEDS ORDERED: DOCUSATE SODIUM 100 MG CAP PO SCH (10:00)
[2024-01-06] MEDS ORDERED: HYDROCODONE-AC1 EAC1 PO (10:23)
[2024-01-06] MEDS ORDERED: COLACE100 MG PO (10:35)
== END 2024-01-06 11:39 | disposition home or self-care (01) | DRG 244 ==
LOC: ED 12:44 → 4E 15:55 → EDHOLD 15:55 → 4E 16:53
PROVIDERS: Nurse Practitioner Family; Occupational Therapist; Registered Nurse; Student in an Organized Health Care Education/Training Program; ADMIT Family Medicine; ATTEND Family Medicine
DX: K57.20 Diverticulitis of large intestine with perforation and abscess without bleeding (principal); E87.6 Hypokalemia; F17.210 Nicotine dependence, cigarettes, uncomplicated; M79.7 Fibromyalgia; E61.1 Iron deficiency; R79.1 Abnormal coagulation profile; K76.0 Fatty (change of) liver, not elsewhere classified; D64.9 Anemia, unspecified; Z88.0 Allergy status to penicillin; Z79.899 Other long term (current) drug therapy; Z79.01 Long term (current) use of anticoagulants; Z79.2 Long term (current) use of antibiotics; Z98.891 History of uterine scar from previous surgery; Z82.0 Family history of epilepsy and other diseases of the nervous system; Z83.3 Family history of diabetes mellitus; Z71.6 Tobacco abuse counseling

== ENCOUNTER 2024-01-24 09:45 | Emergency (ER) | payer OTHER ==
[~2024-01-24] VITALS: Wt 55.8 kg
[~2024-01-24 09:45] MED LIST changes: +COLACE100 MG PO; +HYDROCODONE-AC1 EAC2 PO; +LINZESS290 MC1 PO; +Ondansetron4 MG PO
[2024-01-24] MEDS ORDERED: IOHEXOL 300 MG/ML 100 ML VIAL IV ONE (10:20)
[2024-01-24] MEDS ORDERED: SODIUM CHLORIDE 0.9% 1,000 ML IV SCH (10:20)
[2024-01-24 10:58] LABS: ACT PARTIAL THROMBO TIME 35.9 SECONDS (20.0-32.1)
[2024-01-24 11:00] LABS: BASO % 0.8 % (0.0-1.0); EOS % 0.5 % (1.0-4.0); HEMATOCRIT 38.8 % (37.0-47.0); LYMPH # 1.4 10*3/uL (1.3-4.4); MEAN CELL VOLUME 87.4 fl (81.0-99.0); MEAN CORPUSCULAR HGB 27.7 pg (27.0-31.0); MEAN CORPUSCULAR HGB CONC 31.7 g/dl (33.0-37.0); MEAN PLATELET VOLUME 10.4 fl (9.6-12.3); MONO # 0.6 10*3/uL (0.1-1.0); MONO % 15.2 % (3.0-9.0); NEUT # 1.8 10*3/uL (2.3-7.9); NEUT % 47.2 % (47.0-73.0); PLATELET COUNT AUTOMATED 257 10*3/uL (130-400); RED BLOOD COUNT 4.44 10*6/uL (4.10-5.10); RED CELL DISTRI WIDTH 15.7 % (0-14.5); WHITE BLOOD COUNT 3.8 10*3/uL (4.8-10.8)
[2024-01-24] MEDS ORDERED: HYDROCODONE-AC1 EAC2 PO (11:06)
[2024-01-24 11:11] LABS: ALKALINE PHOSPHATASE 76 U/L (46-116); BUN 7 mg/dl (9-23); CHLORIDE 100 mmol/L (98-107); LIPASE 35 U/L (12-53); POTASSIUM 3.4 mmol/L (3.4-5.1); TOTAL PROTEIN 7.8 gm/dL (6.0-8.0)
[2024-01-24 11:12] LABS: SGPT/ALT < 7 U/L (5-49)
[2024-01-24 11:12] LABS: BILIRUBIN Negative (Negative); BLOOD Negative (Negative); CLARITY Clear (Clear); COLOR Yellow (Yellow); GLUCOSE Negative (Negative); KETONE Negative (Negative); LEUKO ESTERASE Negative (Negative); NITRITE Negative (Negative); SPECIFIC GRAVITY 1.015 (1.001-1.030); UROBILINOGEN 0.2 E.U./dl (0.0-1.0)
[2024-01-24 11:29] LABS: BACTERIA TRACE; CALCIUM OXALATE CRYSTALS Trace
[2024-01-24] MEDS ORDERED: ACETAMINOPHEN 325 MG TAB PO ONE (11:35)
[2024-01-24] MEDS ORDERED: Meropenem 1 GM in SODIUM CHLORIDE 0.9% 100 ML IV ONE (12:15)
[2024-01-24] MEDS ORDERED: MORPHINE Sulfate 2 MG/ML SYR IV ONE (12:25)
[2024-01-24] MEDS ORDERED: MORPHINE Sulfate 2 MG/ML SYR IV PRN (14:55)
[2024-01-24] MEDS ORDERED: Meropenem 1 GM in SODIUM CHLORIDE 0.9% 100 ML IV SCH (22:00)
[2024-01-25] MEDS ORDERED: Acetaminophen/Hydrocodone 5 MG/325 MG TABLET PO ONE ×2 (01:40→06:00)
[2024-01-25 07:18] VITALS: BP 99/67
== END 2024-01-25 07:38 | disposition short-term general hospital (02) ==
LOC: ED 09:45
PROVIDERS: Internal Medicine
DX: K57.30 Diverticulosis of large intestine without perforation or abscess without bleeding (principal); A41.9 Sepsis, unspecified organism; N73.9 Female pelvic inflammatory disease, unspecified; M79.7 Fibromyalgia; Z88.0 Allergy status to penicillin; Z98.890 Other specified postprocedural states; F17.200 Nicotine dependence, unspecified, uncomplicated

== ENCOUNTER 2024-02-21 18:25 | Inpatient (IN) | payer OTHER ==
[~2024-02-21] VITALS: Ht 160 cm; Wt 51.8 kg
[2024-02-21 18:33] VITALS: BP 114/58
[2024-02-21] MEDS ORDERED: SODIUM CHLORIDE 0.9% 1,000 ML IV ONE (20:05)
[2024-02-21] MEDS ORDERED: MORPHINE Sulfate 2 MG/ML SYR IV ONE ×2 (20:05→23:15)
[2024-02-21] MEDS ORDERED: Ondansetron Hydrochloride 4 MG/2 ML VIAL IV ONE ×2 (20:05→23:15)
[2024-02-21] MEDS ORDERED: IOHEXOL 300 MG/ML 100 ML VIAL IV ONE (20:15)
[2024-02-21 20:26] LABS: BILIRUBIN Negative (Negative); BLOOD Negative (Negative); CLARITY Clear (Clear); COLOR Yellow (Yellow); GLUCOSE Negative (Negative); KETONE Trace (Negative); LEUKO ESTERASE Negative (Negative); NITRITE Negative (Negative); SPECIFIC GRAVITY 1.025 (1.001-1.030)
[2024-02-21 20:40] LABS: HEMATOCRIT 32.8 % (37.0-47.0); MEAN CELL VOLUME 83.5 fl (81.0-99.0); MEAN CORPUSCULAR HGB CONC 33.5 g/dl (33.0-37.0); MEAN PLATELET VOLUME 10.2 fl (9.6-12.3); PLATELET COUNT AUTOMATED 156 10*3/uL (130-400); RED BLOOD COUNT 3.93 10*6/uL (4.10-5.10); RED CELL DISTRI WIDTH 16.3 % (0-14.5); WHITE BLOOD COUNT 3.6 10*3/uL (4.8-10.8)
[2024-02-21 20:43] LABS: MANUAL DIFF REFLEX YES
[2024-02-21 20:47] LABS: MUCOUS 2+
[2024-02-21 20:48] LABS: YEAST TRACE
[2024-02-21 20:57] LABS: ALKALINE PHOSPHATASE 142 U/L (46-116); BUN 5 mg/dl (9-23); CHLORIDE 103 mmol/L (98-107); LIPASE 31 U/L (12-53); POTASSIUM 3.8 mmol/L (3.4-5.1); SGPT/ALT 14 U/L (5-49); TOTAL PROTEIN 7.9 gm/dL (6.0-8.0)
[2024-02-21 21:08] LABS: ATYPICAL LYMPHS 1 % (0-0); BASOPHILS 5 % (0-1); PLATELET SUFFICIENCY NORMAL (NORMAL); TOTAL CELLS COUNTED 100 #CELLS
[2024-02-21 23:17] VITALS: BP 127/84
[2024-02-21] MEDS ORDERED: ACETAMINOPHEN 325 MG TAB PO PRN (23:55)
[2024-02-21] MEDS ORDERED: BISACODYL 10 MG SUPP R PRN (23:55)
[2024-02-21] MEDS ORDERED: Ondansetron Hydrochloride 4 MG/2 ML VIAL IV PRN (23:55)
[2024-02-21] MEDS ORDERED: Magnesium Hydroxide 30 ML UDC PO PRN (23:55)
[2024-02-21] MEDS ORDERED: ACETAMINOPHEN 650 MG SUPP R PRN (23:55)
[2024-02-21] MEDS ORDERED: BISACODYL 5 MG TAB PO PRN (23:55)
[2024-02-22] MEDS ORDERED: SODIUM CHLORIDE 0.9% 1,000 ML IV SCH (00:25)
[2024-02-22] MEDS ORDERED: Ketorolac Tromethamine 15 MG/ML VIAL IV PRN (00:50)
[2024-02-22] MEDS ORDERED: Promethazine Hydrochloride 25 MG/ML VIAL IV PRN (00:50)
[2024-02-22] MEDS ORDERED: OXYCONTIN10 M1 PO (02:54)
[2024-02-22 02:55] VITALS: BP 109/80
[2024-02-22 06:00] LABS: HEMATOCRIT 28.1 % (37.0-47.0); MEAN CELL VOLUME 84.9 fl (81.0-99.0); MEAN CORPUSCULAR HGB 27.8 pg (27.0-31.0); MEAN CORPUSCULAR HGB CONC 32.7 g/dl (33.0-37.0); MEAN PLATELET VOLUME 10.4 fl (9.6-12.3); PLATELET COUNT AUTOMATED 128 10*3/uL (130-400); RED BLOOD COUNT 3.31 10*6/uL (4.10-5.10); RED CELL DISTRI WIDTH 16.5 % (0-14.5); WHITE BLOOD COUNT 3.2 10*3/uL (4.8-10.8)
[2024-02-22 06:10] LABS: MANUAL DIFF REFLEX YES
[2024-02-22 07:24] LABS: TOTAL CELLS COUNTED 100 #CELLS
[2024-02-22 07:28] LABS: PLATELET SUFFICIENCY LOW (NORMAL)
[2024-02-22 08:02] LABS: BUN 5 mg/dl (9-23); CHLORIDE 105 mmol/L (98-107); CHOLESTEROL 131 mg/dL (<200); FREE T4 0.95 ng/dl (0.89-1.76); LDL CHOLESTEROL 62 mg/dL (9-159); POTASSIUM 3.9 mmol/L (3.4-5.1); TRIGLYCERIDES 129 mg/dl (<150)
[2024-02-22] MEDS ORDERED: ACETAMINOPHEN 100 ML IV PRN (09:30)
[2024-02-22] MEDS ORDERED: METHOCARBAMOL750 M1 PO (09:43)
[2024-02-22] MEDS ORDERED: ATARAX,VISTARIL50 MG PO (09:43)
[2024-02-22] MEDS ORDERED: ONDANSETRON HYDR4 MG PO (09:44)
[2024-02-22] MEDS ORDERED: GOOD NEIGHBOR L10 MG PO (09:44)
[2024-02-22] MEDS ORDERED: PANTOPRAZOLE SO40 MG PO (09:45)
[2024-02-22] MEDS ORDERED: LOPERAMIDE HCL2 MG PO (09:45)
[2024-02-22 10:00] VITALS: BP 90/61
[2024-02-22] MEDS ORDERED: ACETAMINOPHEN 100 ML IV SCH (12:00)
[2024-02-22 14:15] VITALS: BP 87/58
[2024-02-22 16:00] VITALS: BP 88/48
[2024-02-22 20:00] VITALS: BP 84/59; BP 93/60
[2024-02-23] VITALS: BP 94/63
[2024-02-23 06:06] LABS: HEMATOCRIT 25.4 % (37.0-47.0); MEAN CELL VOLUME 84.4 fl (81.0-99.0); MEAN CORPUSCULAR HGB 27.9 pg (27.0-31.0); MEAN CORPUSCULAR HGB CONC 33.1 g/dl (33.0-37.0); MEAN PLATELET VOLUME 10.7 fl (9.6-12.3); PLATELET COUNT AUTOMATED 119 10*3/uL (130-400); RED BLOOD COUNT 3.01 10*6/uL (4.10-5.10); RED CELL DISTRI WIDTH 16.4 % (0-14.5); WHITE BLOOD COUNT 3.1 10*3/uL (4.8-10.8)
[2024-02-23 06:24] LABS: MANUAL DIFF REFLEX YES
[2024-02-23 06:31] LABS: CHLORIDE 107 mmol/L (98-107); POTASSIUM 3.3 mmol/L (3.4-5.1)
[2024-02-23 06:40] LABS: BUN < 5 mg/dl (9-23)
[2024-02-23 07:52] LABS: BASOPHILS 1 % (0-1); ROULEAUX MARKED; TOTAL CELLS COUNTED 100 #CELLS
[2024-02-23 07:53] LABS: PLATELET SUFFICIENCY LOW (NORMAL)
[2024-02-23 08:00] VITALS: BP 87/55
[2024-02-23 12:00] VITALS: BP 88/57
== END 2024-02-23 13:15 | disposition home health service (06) | DRG 252 ==
LOC: ED 18:25 → EDHOLD 23:39 → 4E 23:39
PROVIDERS: Physician Assistant; Student in an Organized Health Care Education/Training Program; ADMIT Internal Medicine; ATTEND Internal Medicine
DX: K91.89 Other postprocedural complications and disorders of digestive system (principal); R65.10 Systemic inflammatory response syndrome (SIRS) of non-infectious origin without acute organ dysfunction; E55.9 Vitamin D deficiency, unspecified; K56.7 Ileus, unspecified; Y84.8 Other medical procedures as the cause of abnormal reaction of the patient, or of later complication, without mention of misadventure at the time of the procedure; Y82.8 Other medical devices associated with adverse incidents; F17.210 Nicotine dependence, cigarettes, uncomplicated; D64.9 Anemia, unspecified; D70.9 Neutropenia, unspecified; E87.1 Hypo-osmolality and hyponatremia; R73.9 Hyperglycemia, unspecified; K76.0 Fatty (change of) liver, not elsewhere classified; D69.6 Thrombocytopenia, unspecified; Z88.0 Allergy status to penicillin; Z98.891 History of uterine scar from previous surgery; Z82.49 Family history of ischemic heart disease and other diseases of the circulatory system; Z83.6 Family history of other diseases of the respiratory system; Z93.3 Colostomy status; Z71.6 Tobacco abuse counseling

== ENCOUNTER → 2024-03-05 | Outpatient (CLI) | payer OTHER ==
[~2024-03-05] MED LIST changes: +ATARAX,VISTARIL50 MG PO; +GOOD NEIGHBOR L10 MG PO; +LOPERAMIDE HCL2 MG PO; +METHOCARBAMOL750 M1 PO; +ONDANSETRON HYDR4 MG PO; +OXYCONTIN10 M1 PO; +PANTOPRAZOLE SO40 MG PO
[2024-03-05 12:54] LABS: BUN 12 mg/dl (9-23); CHLORIDE 105 mmol/L (98-107); POTASSIUM 3.9 mmol/L (3.4-5.1)
== END | disposition home or self-care (01) ==
LOC: LAB 12:15
PROVIDERS: ATTEND Surgery
DX: K57.20 Diverticulitis of large intestine with perforation and abscess without bleeding (principal)

== ENCOUNTER 2024-04-02 20:05 | Emergency (ER) | payer OTHER ==
[~2024-04-02] VITALS: Ht 160 cm; Wt 49.9 kg
[2024-04-02 20:16] VITALS: BP 103/72
[2024-04-02] MEDS ORDERED: Acetaminophen/Hydrocodone 5 MG/325 MG TABLET PO ONE (20:40)
[2024-04-02] MEDS ORDERED: Ondansetron Hydrochloride 4 MG TAB SL ONE (20:40)
[2024-04-02] MEDS ORDERED: CLINDAMYCIN HCL 300 MG CAPSULE PO ONE (20:40)
[2024-04-02] MEDS ORDERED: CLINDAMYCIN HC300 MG PO (20:44)
[2024-04-02] MEDS ORDERED: Acetaminophen/Hydrocodone 5 MG/325 MG TABLET PO SCH (21:00)
== END 2024-04-02 21:27 | disposition home or self-care (01) ==
LOC: ED 20:05
DX: K02.9 Dental caries, unspecified (principal); M79.7 Fibromyalgia; F17.200 Nicotine dependence, unspecified, uncomplicated; Z88.0 Allergy status to penicillin; Z90.49 Acquired absence of other specified parts of digestive tract; Z90.711 Acquired absence of uterus with remaining cervical stump

== ENCOUNTER 2024-05-02 09:44 | Emergency (ER) | payer OTHER ==
[~2024-05-02] VITALS: Ht 160 cm; Wt 49.0 kg
[2024-05-02] MEDS ORDERED: METHOCARBAMOL750 M1 PO (10:09)
[2024-05-02] MEDS ORDERED: OXYCODONE-ACET1 EAC3 PO (10:09)
[2024-05-02] MEDS ORDERED: GABAPENTIN100 M2 PO (10:10)
[2024-05-02 10:24] LABS: HEMATOCRIT 33.4 % (37.0-47.0); MEAN CORPUSCULAR HGB 30.9 pg (27.0-31.0); MEAN CORPUSCULAR HGB CONC 33.5 g/dl (33.0-37.0); MEAN PLATELET VOLUME 10.1 fl (9.6-12.3); PLATELET COUNT AUTOMATED 162 10*3/uL (130-400); RED BLOOD COUNT 3.63 10*6/uL (4.10-5.10); RED CELL DISTRI WIDTH 15.7 % (0-14.5); WHITE BLOOD COUNT 2.2 10*3/uL (4.8-10.8)
[2024-05-02 10:30] LABS: MANUAL DIFF REFLEX YES
[2024-05-02 10:54] LABS: PLATELET SUFFICIENCY NORMAL (NORMAL); TOTAL CELLS COUNTED 100 #CELLS
[2024-05-02 10:55] LABS: ALKALINE PHOSPHATASE 121 U/L (46-116); BUN 22 mg/dl (9-23); CHLORIDE 109 mmol/L (98-107); POTASSIUM 3.2 mmol/L (3.4-5.1); TOTAL PROTEIN 7.4 gm/dL (6.0-8.0)
[2024-05-02 10:56] LABS: SGPT/ALT < 7 U/L (5-49)
[2024-05-02 10:58] LABS: ACT PARTIAL THROMBO TIME 36.2 SECONDS (20.0-32.1)
[2024-05-02] MEDS ORDERED: MAGNESIUM OXIDE 400 MG TAB PO ONE (11:15)
[2024-05-02] MEDS ORDERED: POTASSIUM CHLORIDE 20 MEQ TAB PO ONE (11:15)
[2024-05-02] MEDS ORDERED: Acetaminophen/Oxycodone 5 MG/325 MG TABLET PO ONE ×2 (11:55→15:40)
[2024-05-02] MEDS ORDERED: IOHEXOL 350 MG/ML 100 ML VIAL IV ONE (13:00)
[2024-05-02] MEDS ORDERED: SODIUM CHLORIDE 0.9% 100 ML BAG IV ONE (13:00)
[2024-05-02 13:45] VITALS: BP 92/57
[2024-05-02] MEDS ORDERED: ASPERCREME LID1 EACH T (15:37)
[2024-05-02] MEDS ORDERED: LIDOCAINE 1 EA PATCH T ONE (15:40)
== END 2024-05-02 11:54 | disposition home or self-care (01) ==
LOC: ED 09:44
PROVIDERS: Emergency Medicine
DX: R09.1 Pleurisy (principal); D64.9 Anemia, unspecified; R07.89 Other chest pain; E87.6 Hypokalemia; E83.42 Hypomagnesemia; D72.819 Decreased white blood cell count, unspecified; R06.02 Shortness of breath; Z88.0 Allergy status to penicillin; M79.7 Fibromyalgia; Z90.49 Acquired absence of other specified parts of digestive tract; Z90.711 Acquired absence of uterus with remaining cervical stump; Z98.890 Other specified postprocedural states; F17.200 Nicotine dependence, unspecified, uncomplicated; R73.9 Hyperglycemia, unspecified

== ENCOUNTER → 2024-10-18 | Outpatient (CLI) | payer OTHER ==
[~2024-10-18] MED LIST changes: +ASPERCREME LID1 EACH T; +GABAPENTIN100 M2 PO; +OXYCODONE-ACET1 EAC3 PO
[2024-10-18 11:11] LABS: HEMATOCRIT 37.5 % (37.0-47.0); MEAN CORPUSCULAR HGB 28.9 pg (27.0-31.0); MEAN CORPUSCULAR HGB CONC 32.8 g/dl (33.0-37.0); MEAN PLATELET VOLUME 10.1 fl (9.6-12.3); PLATELET COUNT AUTOMATED 152 10*3/uL (130-400); RED BLOOD COUNT 4.26 10*6/uL (4.10-5.10); RED CELL DISTRI WIDTH 14.6 % (0-14.5); WHITE BLOOD COUNT 3.1 10*3/uL (4.8-10.8)
[2024-10-18 11:12] LABS: MANUAL DIFF REFLEX YES
[2024-10-18 11:33] LABS: ALKALINE PHOSPHATASE 127 U/L (46-116); BUN 14 mg/dl (9-23); CHLORIDE 103 mmol/L (98-107); POTASSIUM 3.8 mmol/L (3.4-5.1); SGPT/ALT 15 U/L (5-49)
[2024-10-18 11:58] LABS: ATYPICAL LYMPHS 15 % (0-0); TOTAL CELLS COUNTED 100 #CELLS
[2024-10-18 12:00] LABS: PLATELET SUFFICIENCY NORMAL (NORMAL)
[2024-10-19 13:06] LABS: CCP ANTIBODIES IGG/IGA >250 units (0-19)
[2024-10-21 13:06] LABS: ANTI-DSDNA ANTIBODIES 2 IU/mL (0-9); ANTI-RNP ANTIBODIES 0.2 AI (0.0-0.9); ANTICHROMATIN ANTIBODIES <0.2 AI (0.0-0.9); ANTISCLERODERMA-70 AB <0.2 AI (0.0-0.9)
== END | disposition home or self-care (01) ==
LOC: LAB 10:49
PROVIDERS: ATTEND Internal Medicine
DX: M79.7 Fibromyalgia (principal); R76.8 Other specified abnormal immunological findings in serum; R19.7 Diarrhea, unspecified

== ENCOUNTER → 2024-12-13 | Outpatient (CLI) | payer OTHER | END | disposition home or self-care (01) | LOC: LAB 11:47 | PROVIDERS: ATTEND Specialist | DX: M19.042 Primary osteoarthritis, left hand (principal); M19.041 Primary osteoarthritis, right hand; M79.642 Pain in left hand; M79.641 Pain in right hand; M79.672 Pain in left foot; M79.671 Pain in right foot; M79.7 Fibromyalgia; F41.9 Anxiety disorder, unspecified; M19.90 Unspecified osteoarthritis, unspecified site ==

== ENCOUNTER 2025-06-20 17:36 | Emergency (ER) | payer OTHER ==
[~2025-06-20] VITALS: Wt 59.0 kg
[2025-06-20 17:44] VITALS: BP 143/97
[2025-06-20] MEDS ORDERED: Acetaminophen/Oxycodone 5 MG/325 MG TABLET PO ONE (17:55)
[2025-06-20] MEDS ORDERED: PERCOCET 5-3251 EACH PO (17:55)
== END 2025-06-20 18:05 | disposition home or self-care (01) ==
LOC: ED 17:36
DX: K08.89 Other specified disorders of teeth and supporting structures (principal); F17.200 Nicotine dependence, unspecified, uncomplicated; Z88.0 Allergy status to penicillin; Z79.899 Other long term (current) drug therapy; Z90.49 Acquired absence of other specified parts of digestive tract; Z90.710 Acquired absence of both cervix and uterus; Z98.890 Other specified postprocedural states

== ENCOUNTER 2025-08-29 14:51 | Emergency (ER) | payer OTHER ==
[~2025-08-29] VITALS: Ht 160 cm; Wt 61.2 kg
[~2025-08-29 14:51] MED LIST changes: +PERCOCET 5-3251 EACH PO
[2025-08-29 15:28] VITALS: BP 112/79
[2025-08-29] MEDS ORDERED: HYDROCODONE-AC1 EAC1 PO (15:41)
== END 2025-08-29 15:47 | disposition home or self-care (01) ==
LOC: ED 14:51
DX: K08.89 Other specified disorders of teeth and supporting structures (principal); M79.7 Fibromyalgia; F17.210 Nicotine dependence, cigarettes, uncomplicated; Z98.890 Other specified postprocedural states; Z90.49 Acquired absence of other specified parts of digestive tract; Z90.710 Acquired absence of both cervix and uterus; Z88.0 Allergy status to penicillin